=== PATIENT | male | born 1995 | race Caucasian/White ===

== ENCOUNTER 2022-04-20 20:16 | Emergency (ER) | payer OTHER ==
[2022-04-20 20:27] VITALS: BMI 30.1
[2022-04-20] MEDS ORDERED: ACETAMINOPHEN 500 MG TABLET (FP) PO ONE (20:43)
[2022-04-20] MEDS ORDERED: ALBUTEROL SO4 2.5/IPRATROPIUM 0.5 INH SOL 3 ML VIAL.NEB. NEB ONE ×2 (20:51→20:53)
[2022-04-20] MEDS ORDERED: ACETAMINOPHEN 500 MG TABLET (FP) ONE (20:53)
[2022-04-20 21:37] VITALS: BP 112/60; PULSE 113; RESP 18; TEMP 101.8
== END 2022-04-20 21:43 | disposition home or self-care (01) ==
LOC: FER 20:16
PROC: 3E0F7GC Introduction of Other Therapeutic Substance into Respiratory Tract, Via Natural or Artificial Opening (ICD-10-PCS; principal; 2022-04-20)
DX: J09.X1 Influenza due to identified novel influenza A virus with pneumonia (principal); R50.9 Fever, unspecified; R05.1 Acute cough; Z20.822 Contact with and (suspected) exposure to COVID-19
CPT/HCPCS: 0241U-QW; 99283-25